=== PATIENT | male | born 1970 | race Caucasian/White ===

== ENCOUNTER → 2021-08-04 10:00 | Outpatient (BNVA) | payer SELFPAY | PROVIDERS: Visit Provider Nurse Practitioner Family | DX: Z20.822 Contact with and (suspected) exposure to COVID-19 (principal) | CPT/HCPCS: 87426 ==

== ENCOUNTER 2021-08-09 09:56 | Emergency (ER) | payer MEDICARE, OTHER, SELFPAY ==
[2021-08-09 09:57] VITALS: BP 156/91; PULSE 78; RESP 15; TEMP 36.8; O2SAT 96; BMI 34.9
--- NOTE | 2021-08-09 10:01 | ED_ITS ---
HPI - Extremity Problem General: Chief complaint: Extremity Injury, Lower Stated complaint: LEFT KNEE PAIN S/P FALL Time Seen by Provider: 08/09/21 09:58 History of Present Illness: HPI Narrative: 50-year-old male presents due to left knee pain after mechanical fall. 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 Denies any head trauma. Denies any headache or neck pain. Denies focal numbness weakness or tingling. Denies any hip pain or ankle pain. Denies any other focal pain except as above. Review of Systems Narrative: - CONSTITUTIONAL: Denies weight loss, fever and chills. - HEENT: Denies changes in vision and hearing. - RESPIRATORY: Denies SOB and cough. - CV: Denies palpitations and CP. - GI: Denies abdominal pain, nausea, vomiting and diarrhea. - : Denies dysuria and urinary frequency. - MSK: As above - SKIN: Denies rash and pruritus. - NEUROLOGICAL: Denies headache, weakness, numbness and syncope. - PSYCHIATRIC: Denies suicidal ideation [facility] ED PFSH: Social History (Updated 08/04/21 @ 08:42 by Melissa Rivero NP) Smoking and tobacco status: current every day smoker cigarettes Physical Exam Narrative: EXAM NARRATIVE: - GENERAL: Alert and oriented x 3. No acute distress. Well-nourished. - EYES: EOMI. Anicteric. - HENT: Atraumatic, no C-spine tenderness. Moist mucous membranes. No scleral icterus. No cervical lymphadenopathy. - LUNGS: Clear to auscultation bilaterally. No accessory muscle use. Equal lung sounds bilaterally. No respiratory distress. - CARDIOVASCULAR: Regular rate and rhythm. No murmur. No JVD. - ABDOMEN: Soft, non-tender and non-distended. Negative CVA tenderness bilaterally, no rebound or guarding, negative Jacques sign. No palpable masses. - EXTREMITIES: No edema. Tenderness to palpation of the left knee, no laxity, compartments are soft, extremities neurovascularly intact. - SKIN: No rashes or lesions. Warm. - NEUROLOGIC: No meningismus or focal neurological deficits. CN II-XII grossly intact. - PSYCHIATRIC: Cooperative. Appropriate mood and affect. Course Vital Signs: Vital signs: Vital Signs Temperature 98.2 F 08/09/21 09:57 Pulse Rate 74 08/09/21 10:35 Respiratory Rate 17 08/09/21 10:35 Blood Pressure 156/91 08/09/21 10:35 Pulse Oximetry 97 08/09/21 10:35 MDM - Extremity (Nontraumatic) MDM Narrative: Medical decision making narrative: 50-year-old male presents for left knee pain after mechanical fall. Denies any other sign of injury or focal pain. Physical exam does not reveal any neurovascular compromise. Compartments are soft. X-ray does not reveal any fracture dislocation. At this time I believe patient would be safe for discharge and outpatient follow-up. Return precautions provided. Plan was reviewed with the patient who expressed understanding. Questions answered. Patient will follow up with PCP. Patient discharged in stable condition. Discharge Plan Discharge Prescriptions: No Action allopurinol 100 mg tablet 100 mg PO DAILY RF: 0 losartan 50 mg tablet 50 mg PO DAILY RF: 0 famotidine 20 mg tablet 20 mg PO BID RF: 0 sertraline 100 mg tablet 100 mg PO DAILY RF: 0 simvastatin 80 mg tablet 40 mg PO DAILY RF: 0 coenzyme Q10 300 mg capsule 300 mg PO DAILY RF: 0 loratadine [Claritin] 10 mg tablet 10 mg PO DAILY RF: 0 Coding Level of Care Code ED [employer] for [facility]
--- NOTE | 2021-08-09 10:01 | XRR_ITS ---
PROCEDURE INFORMATION: Exam: XR Left Knee Exam date and time: 08/09/2021 10:01 AM Age: 50 years old Clinical indication: Injury or trauma; Fall; Blunt trauma; Knee; Left TECHNIQUE: Imaging protocol: XR Left knee. Views: 3 views. Total images: 3 COMPARISON: No relevant prior studies available. FINDINGS: Bones/joints: Normal. Soft tissues: Normal. XR/XR knee LT 3V* [id number] IMPRESSION: No acute findings. Radiation Dose CTDIVOL = (mGy): DLP = (mGy-cm)
[2021-08-09] MEDS: HYDROcodone-acetaminophen 5-325 mg Tablet 1 TAB PO (10:05)
[2021-08-09 10:35] VITALS: BP 156/91; PULSE 74; RESP 17; O2SAT 97
== END 2021-08-09 12:20 | disposition home or self-care (01) ==
PROVIDERS: Emergency Provider Emergency Medicine
DX: M25.562 Pain in left knee (principal); F17.210 Nicotine dependence, cigarettes, uncomplicated
CPT/HCPCS: 29530; 73562; 99283

== ENCOUNTER → 2021-10-23 11:20 | Outpatient (BNVA) | payer MEDICARE, OTHER, SELFPAY | PROVIDERS: Visit Provider Emergency Medicine | DX: I25.2 Old myocardial infarction (principal); R11.0 Nausea; R53.1 Weakness; Z20.822 Contact with and (suspected) exposure to COVID-19; R68.89 Other general symptoms and signs | CPT/HCPCS: 71046; 87400; 87635 ==